=== PATIENT | male | born 1940 | race Two or more races ===

== ENCOUNTER → 2023-07-09 13:42 | Outpatient (REF) | payer OTHER, SELFPAY | LOC: HWRAD 13:42 | PROVIDERS: ATTENDING PHYSICIAN Internal Medicine Critical Care Medicine; FAMILY PHYSICIAN Hospitalist | DX: R91.1 Solitary pulmonary nodule (principal) | CPT/HCPCS: 71250 ==

== ENCOUNTER 2023-11-05 20:51 | Observation (INO) | payer OTHER, SELFPAY ==
[2023-11-05] VITALS (7 sets, daily range): BP systolic 136–157; BP diastolic 79–103; BMI 22.0; BMI 23.0
[2023-11-05 15:06] LABS: Glucose - Point of Care 103 mg/dl (70-99)
[2023-11-05 15:19] LABS: % Basophils 0.8 % (0-2); % Eosinophils 4.6 % (0-6); % Immature Granulocytes 0.2 % (0-0.5); % Lymphocytes 23.7 % (20.5-51.1); % Monocytes 12.7 % (1.7-9.3); Absolute Basophils 0.1 10^3/uL (0-0.2); Absolute Eosinophils 0.3 10^3/uL (0-0.7); Absolute Lymphocytes 1.5 10^3/uL (1.2-3.4); Absolute Monocytes 0.8 10^3/uL (0.1-0.6); Absolute Neutrophils 3.8 10^3/uL (1.4-6.5); Hematocrit 41.4 % (39.0-52.0); Hemoglobin 14.3 g/dL (13.0-18.0); Mean Corp Hgb Conc. 34.5 g/dL (33.0-37.0); Mean Corpuscular Hgb 32.1 pg (27.0-31.0); Mean Corpuscular Volume 92.8 fL (80.0-94.0); Mean Platelet Volume 9.3 fL (7.4-10.4); Nucleated Red Blood Cells % 0 % (-); Platelet Count 224 10^3/uL (130-400); Red Blood Cell Count 4.46 10^6/uL (4.70-6.10); Red Cell Dist. Width 12.2 % (11.5-14.5); White Blood Cell Count 6.5 10^3/uL (4.8-10.8)
[2023-11-05 15:43] LABS: ALT (SGPT) 17 U/L (0-50); AST (SGOT) 24 U/L (17-59); Albumin 4.3 g/dl (3.5-5.0); Alkaline Phosphatase 71 U/L (38-126); Blood Urea Nitrogen 27 mg/dl (9-20); Calcium 9.3 mg/dl (8.4-10.2); Carbon Dioxide 26 mmol/L (22-30); Chloride 104 mmol/L (98-107); Estimated Creatinine Clearance 42 ml/min; Glucose 107 mg/dl (70-99); Potassium 4.5 mmol/L (3.5-5.1); Sodium 138 mmol/L (135-145); Total Bilirubin 0.6 mg/dl (0.2-1.3); Total Protein 6.8 g/dl (6.3-8.2); eGFR 54.17
--- NOTE | 2023-11-05 19:17 | ED.CVA ---
History of Present Illness
General
Chief Complaint: CVA/TIA Symptoms
Source: patient
Exam Limitations: none
Time Seen by Provider: 11/05/23 17:24
Nursing documentation reviewed up to this point in time: agreed with
Onset of Stroke Symptoms
Onset of symptoms known: Yes
Date of onset of symptoms: 11/04/23
History of Present Illness
History of Present Illness:
83-year-old male presents emergency room complaining of intermittent slurred speech since yesterday. No aggravating relieving factors. He initially was having double vision 2 weeks ago.
Past History
Past History
ED Past Medical History: None
ED Past Surgical History: Cholecystectomy
Social History
Tobacco: Non-smoker
Alcohol: None
Drug: None
Review of Systems
Review of Systems
Allergies reviewed?: Yes
Constitutional: Reports no symptoms
EENT: Reports no symptoms
Respiratory: Reports no symptoms
Cardiac: Reports no symptoms
ABD/GI: Reports no symptoms
: Reports no symptoms
Musculoskeletal: Reports no symptoms
Skin: Reports no symptoms
Neurological: Reports other (Slurred speech, double vision)
Endocrine: Reports no symptoms
Hematologic/Lymphatic: Reports no symptoms
Psychiatric: Reports no symptoms
Phy Exam
Physical Exam
Physical Exam:
Physical Exam
General: afebrile
Neck: supple. no meningeal signs. normal posterior pharynx
Heart: s1/s2 regular rate and rhythm, no murmur. equal radial
pulses.
HEENT: Pupils equal round reactive to light, EOMI
Lungs: no acute respiratory distress. clear bilaterally
Abdomen: normal bowel sounds. not tender. no CVAT
Neuro: alert and oriented. no focal neurological deficits cranial nerves II through XII intact
Skin: no rash
Psychiatric: well kept. interactive and cooperative
Extremities: no edema. no calf tenderness. negative homans. good distal pulses
Scores
NIH Stroke Score
Level of Consciousness: 0 - Alert
LOC Questions: 0-Answers both correctly
LOC Commands: 0-Performs both correctly
Best Horizontal Gaze: 0-Normal
Visual Rios: 0=Normal, no visual loss
Facial Palsy: 0=Normal, symmetrical
Motor - Right Arm: 0=No drift 10 seconds
Motor - Left Arm: 0=No drift 10 seconds
Motor - Right Le-No drift 5 seconds
Motor - Left Le-No drift 5 seconds
Limb Ataxia: 0-Absent
Sensation: 0-Normal
Best Language: 0-No aphasia
Dysarthria: 0-Normal
Extinction and Inattention: 0-No abnormality
Total Score:: 0
Thrombolytic Contraindication
Inclusion and Exclusion criteria reviewed: Yes
Reasons for NON-Tx with Thrombolytics ABSOLUTE Exclusions: Greater than 4.5 hrs from onset of sxs
Course
Orders/Labs/Results
Orders:
Orders
11/05/23 14:37
Electrocardiogram (*1) Urgent
Reason for Study: TIA/Stroke
CT Head W/o Iv Contrast Urgent
Comment: for the last two wks
Reason For Exam: intermit slurred speech and diff eating
11/05/23 14:38
EKG- Treatment ONCE
11/05/23 15:08
Complete Blood Count/With Diff Urgent
Comprehensive Metabolic Panel Urgent
Abnormal Lab Results
11/05/23 11/05/23
15:04 15:08
RBC 4.46 L 10^6/uL
(4.70-6.10)
MCH 32.1 H pg
(27.0-31.0)
Absolute Monos (auto) 0.8 H 10^3/uL
(0.1-0.6)
Monocytes % 12.7 H %
(1.7-9.3)
BUN 27 H mg/dl
(9-20)
Glucose 107 H mg/dl
(70-99)
POC Glucose 103 H mg/dl
(70-99)
11/05/23 15:08
11/05/23 15:08
Vital Signs
Initial and Last Documented VS:
Initial Vital Signs
Temp Pulse Resp BP Pulse Ox
98.0 F 74 16 147/88 98
11/05/23 14:34 11/05/23 14:34 11/05/23 14:34 11/05/23 14:34 11/05/23 14:34
Last Documented Vital Signs
Temp Pulse Resp BP Pulse Ox
98.0 F 74 13 143/103 93
11/05/23 14:34 11/05/23 18:45 11/05/23 18:45 11/05/23 18:00 11/05/23 18:30
MDM/Problems Addressed
Differential Diagnosis Includes:
cva, tia
MDM/Problems Addressed:
83-year-old male with possible TIA vs MG. No indication for IAT or TNK. Discussed with neurology, who will evaluate, recommends TIA and MG workup
*Radiology
Radiology exam reviewed: radiology read reviewed (CT head shows no acute findings)
*Pulse Oximetry
Patient hypoxic: no
*EKG
Interpreted by ED Provider?: Yes
EKG Intrepretation Date: 11/05/23
EKG Intrepretation Time: 15:03
Interpretation: abnormal
Comparison EKG: no changes
Heart Rate: 75
Rate: normal
Rhythm: sinus
[place]: normal axis
Interval: normal interval
QRS Pattern: right bundle branch block
Ischemia: no ischemia
*Sizing Machine And Drier Operator Interpretation
Rate: normal
Interpretation: normal
Heart Rate: 75
Rhythm: sinus
*Critical Care Note
Total Time (30-74mins, 75-104mins- exclusive of procedures): Not Applicable
Data Reviewed
Prescriptions/Medications Considered But Not Given:
TNK not indicated
Patient Management
Social determinants of health affecting care: Living situation
Discussion with other providers: Hospitalist and Assistant Boiler Operator (Neurology)
Escalation/DeEscalation of care consider admission/obs:
Admit indicated
ED Attending Note
-
Portions of this chart may have been created with voice recognition software.� Occasional wrong word or��sound alike� substitutions may have occurred due to the inherent limitations of voice recognition software.
Discharge Plan
Departure
Patient Disposition: Admit
Date of Disposition: 11/05/23
Time of Disposition: 19:40
Admit to: Telemetry
Admit to doctor: Tito
Presentation/result/management discussed w/ accepting MD/DO: Hospitalist
Patient with high blood pressure during this ER visit?: Yes
Condition: Good
Discharge Problem:
Double vision, Dysphagia
Prescriptions:
No Action
Theragen Tablet
1 tab PO DAILY
imiquimod 5 % Cream In Packet
1 applic TOPICAL DAILYPRN PRN (Reason: top of face)
Referrals:
NONE,* [Family Provider] -
Interventions
Interventions:
*Risk Screen - Suicide Last Done: 11/05/23 15:21
*General Assessment Last Done: 11/05/23 15:21
*Neglect/Abuse Screening Last Done: 11/05/23 15:21
ED- Fall Risk Assessment Last Done: 11/05/23 15:21
ED- Pulmonary Assessment Last Done: 11/05/23 15:21
ED- Neurological Assessment Last Done: 11/05/23 15:21
ED- Cardiac Assessment Last Done: 11/05/23 15:21
ED Swallowing Screen Last Done: 11/05/23 15:21
Discharge Date and Time
Print Language: PASHTO
--- NOTE | 2023-11-05 20:10 | HPS.HSE ---
Family Physician
-
Family Physician: * NONE
Chief Complaint
-
double vision, swallowing difficulty
History of Present Illness
83-year-old male history of cataracts presenting with double vision since September. He states that he was on a trip and at that time he felt his eye muscles were weakening. Symptoms have not improved since then. Yesterday he felt that he was having
trouble swallowing and his tongue felt weird. He also had slurred speech since yesterday which has not completely improved. He denies any numbness or tingling anywhere else in the body or focal weakness or vertigo or headache.
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
He has had family history of strokes. Denies smoking or alcohol or drugs.
Medical History
Past Medical History
Past Medical History: Reports None
Past Surgical History: Reports Other (cataracts )
Social History
Tobacco: Non-smoker
Alcohol: None
Drug: None
Family History
Family History: Not pertinent
Allergies / Home Medications
Allergies reflects when Allergies were last updated in [facility].
Home Medications with original date entered in [facility]
Allergy/Medication List:
Allergies
Allergy/AdvReac Type Severity Reaction Status Date / Time
No Known Allergies Allergy Verified 11/05/23 14:37
Home Medications
imiquimod 5 % topical cream packet 1 applic topical DAILYPRN PRN top of face 11/05/23
therapeutic multivitamin 1 tab PO DAILY 11/05/23
Review of Systems
-
History Source: Patient
A 12 point ROS was completed and negative except as noted: Yes
Constitutional: Reports No Symptoms
EENT: Reports No Symptoms
Respiratory: Reports No Symptoms
Cardiac: Reports No Symptoms
Abdomen/GI: Reports No Symptoms
: Reports No Symptoms
Musculoskeletal: Reports No Symptoms
Skin: Reports No Symptoms
Neurological: Reports See HPI
Endocrine: Reports No Symptoms
Hematologic/Lymphatic: Reports No Symptoms
Psych: Reports No Symptoms
Physical Exam
Vital Signs
Vital Signs
Temp Pulse Resp BP Pulse Ox
98.0 F 74 13 143/103 93
11/05/23 14:34 11/05/23 18:45 11/05/23 18:45 11/05/23 18:00 11/05/23 18:30
Physical Exam
General: Well Developed, Well Nourished and No Apparent Distress
HEENT: NormoCephalic, Moist mucous membranes and Atraumatic
Respiratory: Clear
Cardiac: S1/S2 and Regular Rhythm; No Murmur or Rub
GI: Soft, Non Tender, Non Distended and Normal Bowel Sounds; No Organomegaly
Rectal: Deferred by Provider
Musculoskeletal: No Clubbing, No Cyanosis and No Edema
Skin: No Rash
Neuro: Nonfocal/grossly intact
Laboratory Results
-
11/05/23 15:08
11/05/23 15:08
Laboratory Results
Total Bilirubin 0.6 mg/dl (0.2-1.3) 11/05/23 15:08
AST 24 U/L (17-59) 11/05/23 15:08
ALT 17 U/L (0-50) 11/05/23 15:08
Alkaline Phosphatase 71 U/L (38-126) 11/05/23 15:08
Data Reviewed
-
Lab Data: Labs Reviewed by me
Old Records: Reviewed
Impression/Plan
-
IMPRESSION:
PLAN:
# CVA versus myasthenia gravis
-NIH 1 for mild speech slurring
-Check MRI/MRA neck and brain
-Check acetylcholine receptor antibody
-Neurology consulted
-Check speech and swallow
History of cataract surgery 2 years ago
Full code
DVT prophylaxis SCDs
Regular diet
--- NOTE | 2023-11-05 21:48 | CON.NEURO4 ---
Addendum entered and electronically signed by Vladimir Burroughs MD 11/06/23 12:23:
Pat has bilateral ptosis on cranial III nerve exam
Original Note:
Consultation - Neurology 4
-
CONSULTING PHYSICIAN: Vladimir Burroughs MD(Neurology)
REFERRING PHYSICIAN: Hospitalist/ ER
DICTATED BY: Vladimir Burroughs MD
DATE/TIME OF REQUEST: 11/05/2023
DATE/TIME OF CONSULTATION: 11/05/2023 1900
Reason for Consultation: Double vision
History of Present Illness:
This is a 83 year old right handed male who has presented to the hospital with chief complaint of double vision and slurred speech. He was in his [facility] till October 2023. At that time he had gone on long motorcycle trip across the state. On his
return he had blurred vision and double vision. The severity of the double vision would fluctuate from day-to-day. He later developed slurred speech. 2 nights prior to emergency room visit he was having dinner with his friends and could not chew.
His slurred speech was extremely severe. He called his friend who was a retired supplier quality manager, who advised him to go to the emergency room. He denies drooping of the eyelid
Or worsening of symptoms in the evening.
At the time of my evaluation patient had double vision looking straight ahead. And vision was intact on peripheral gaze.
Past Medical History: Warts
Surgical History: Cataract
Family History: [place]
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 Does not smoke or use alcohol
Allergies: NKA
Home Medications: Topical Imiquimod
Review of Symptoms:
Patient denies any fever, headache, chest pain, shortness of breath, GI or symptoms.
�Per the HPI.�All systems are reviewed negative except above.
Vital Signs:
The patient has a Temp36.6 C Pulse 69 Resp 18 BP 156/84 Pulse Ox 95
Physical Exam:
The patient is afebrile, heart sounds S1 and S2 are (regular / irregular), and chest is clear to auscultation bilaterally.
- If not clear, describe.
Neurologic Examination:
The patient is awake, alert and oriented x 3. He is able to follow commands and answer questions appropriately. Speech is fluent and there is no aphasia. Pat has dysarthria and difficulty chewing.
On cranial nerve assessment, pupils are 3 mm bilateral, round and reactive to light and accommodation. Visual mendoza are full. Extraocular movements are intact. Facial sensations are intact and bilaterally symmetrical, there is no facial asymmetry.
Hearing is intact bilaterally to normal conversation volume. Tongue palate and uvula are midline. Sternocleidomastoid strengths are full bilaterally.
Motor strengths are 5/5 bilateral upper and lower extremities on medical research [place] scale. There is no drift or involuntary movement noted. Deep tendon reflexes are 2+ bilateral upper and lower extremities and Babinski is absent bilaterally.
Sensations of pain, touch, temperature and vibration are intact and bilaterally symmetrical. There was no extinction noted on double simultaneous stimulation. Coordination is intact by finger to nose bilaterally.
Rombergs negative. Gait is WNL
Lab Results: 11/05/23 15:08
11/05/23 15:08
Neuro Imaging: CT head atrophy small vessel disease mild ventricular dilation
Impression:
Mr. RAYO MORALES is a 83 year old M who has presented to the hospital with bulbar symptoms of double vision, Dysarthria, difficulty chewing and dysphagia
Differentials for the patient's presentation include:
1. Myasthenia Gravis
2. Vertebrobasilar insufficiency
Recommendations:
1. Mestinon 30 mg TID before meals
2. Ecasa 81
3. Avoid statins for now
4. MRI of brainstem
5. Speech therapy
Discussed patient care with: Hospitalist
Allergies
-
Allergies
Allergy/AdvReac Type Severity Reaction Status Date / Time
No Known Allergies Allergy Verified 11/05/23 14:37
Vital Signs and Labs
-
Vital Signs and Labs:
Vital Signs
Temp Pulse Resp BP Pulse Ox
36.6 C 69 18 156/84 95
11/05/23 21:15 11/05/23 21:15 11/05/23 21:15 11/05/23 21:15 11/05/23 21:15
Lab Results
0
Sodium 138 mmol/L (135-145) 11/05/23 15:08
Potassium 4.5 mmol/L (3.5-5.1) 11/05/23 15:08
BUN 27 mg/dl (9-20) H 11/05/23 15:08
Glucose 107 mg/dl (70-99) H 11/05/23 15:08
Calcium 9.3 mg/dl (8.4-10.2) 11/05/23 15:08
Medications
-
Active Medications
Generic Name Dose Route Start Last Admin
Trade Name Freq PRN Reason Stop Dose Admin
Sodium Chloride 0 flush 11/05/23 22:00
Sodium Chloride 0.9% (Flush) Syringe IV 12/03/23 21:59
PER PROTOCOL CHECO
Home Medications
�Medication �Instructions �Recorded
imiquimod 5 % topical cream packet 1 applic topical DAILYPRN PRN top 11/05/23
of face
therapeutic multivitamin 1 tab PO DAILY 11/05/23
[2023-11-06 03:10] VITALS: BP 136/84
[2023-11-06 07:00] VITALS: BP 156/94
[2023-11-06 07:19] LABS: Hematocrit 41.2 % (39.0-52.0); Hemoglobin 14.5 g/dL (13.0-18.0); Mean Corp Hgb Conc. 35.2 g/dL (33.0-37.0); Mean Corpuscular Hgb 32.2 pg (27.0-31.0); Mean Corpuscular Volume 91.6 fL (80.0-94.0); Mean Platelet Volume 9.1 fL (7.4-10.4); Platelet Count 210 10^3/uL (130-400); Red Cell Dist. Width 12.2 % (11.5-14.5); White Blood Cell Count 7.2 10^3/uL (4.8-10.8)
[2023-11-06 08:18] LABS: Blood Urea Nitrogen 23 mg/dl (9-20); Calcium 8.9 mg/dl (8.4-10.2); Carbon Dioxide 28 mmol/L (22-30); Chloride 104 mmol/L (98-107); Estimated Creatinine Clearance 47 ml/min; Glucose 95 mg/dl (70-99); HDL Cholesterol 59 mg/dl; LDL Cholesterol, Calculated 136 mg/dl; Potassium 4.6 mmol/L (3.5-5.1); Sodium 138 mmol/L (135-145); Total Cholesterol 213 mg/dl (50-199); Triglyceride 91 mg/dl (10-149); Very Low Density Lipoprotein 18 mg/dl (0-30); eGFR 59.63
--- NOTE | 2023-11-06 10:53 | W.PN.HOSP.TC ---
Today's Communication/Plan
-
Follow-up MRI/MRI
Follow-up myasthenia gravis antibodies
Neurology eval
Assessment / Plan
Assessment / Plan
#Diplopia/visual disturbance -- differentials include CVA/TIA versus myasthenia gravis; lower suspicion for Eaton-Lambert syndrome
#Slurred speech
-No obvious focal deficits on arrival, NIHSS initially was 1 due to mild speech slurring
-Symptoms have been intermittent, associated with visual disturbance and slurred speech at times
-Per history today there is not any obvious fatigable pattern to his symptoms, denies being worse at night
-MRI/MRA of the head and neck were ordered with results pending to assess for etiologies of CVA
-Myasthenia gravis antibody panel ordered, results pending
-Neurology following
Plan
-Follow-up the above studies
-Avoid IV magnesium until myasthenia gravis ruled out
-Continue with frequent neurochecks, monitor for respiratory distress
-Continue to follow NIHSS
#History of cataract surgery 2 years ago
-Following his procedure his vision was improved, do not expect that this is related to his admission here
Full code
DVT prophylaxis: SCDs
Diet: House
Anticipated Discharge: 24 - 48 hours
Subjective/Interval History
-
Date of Service: November 06, 2023
No acute events. States that he feels well today though symptoms are intermittent and come and go. Additionally, he does not describe any temporal relation or obvious fatigability to his symptoms.
He denies any diplopia or blurry vision at time of my eval, he denies any other symptoms either. States that he feels well and like himself.
Objective Data
-
Labs:
Laboratory Results
11/06/23
06:46
WBC 7.2
Hgb 14.5
Hct 41.2
Plt Count 210
Sodium 138
Potassium 4.6
Chloride 104
Carbon Dioxide 28
BUN 23 H
Creatinine 1.2
Glucose 95
Calcium 8.9
Vital Signs:
Vital Signs
Temp Pulse Resp BP Pulse Ox
97.4 F 81 16 156/94 94
11/06/23 07:00 11/06/23 07:00 11/06/23 07:00 11/06/23 07:00 11/06/23 07:00
I&O
11/05/23 11/06/23 11/07/23
06:59 06:59 06:59
Intake Total 360 / 360
Balance 360 / 360
Review of Systems
-
History Source: Patient
All other systems: Reviewed and negative
Constitutional: Reports No Symptoms
EENT: Reports No Symptoms Reported
Respiratory: Reports No Symptoms
Cardiac: Reports No Symptoms
Abdomen/GI: Reports No Symptoms
Genitourinary: Reports No Symptoms
Musculoskeletal: Reports No Symptoms
Skin: Reports No Symptoms
Neuro: Reports No Symptoms
Endocrine: Reports No Symptoms
Hematologic / Lymphatic: Reports No Symptoms
Physical Exam
-
General: No Apparent Distress, Comfortable and Other (Thin elderly male)
HEENT: Normocephalic, Atraumatic, Moist Mucous Membranes and Anicteric
Respiratory: Clear to Auscultation and Non Labored Respirations; Negative Wheezes, Rales or Rhonchi
Cardiac: Regular Rhythm and S1/S2; Negative Murmur, Rub or Gallop
GI: Soft, Nontender, Nondistended and Normal Bowel Sounds
Musculoskeletal: No Clubbing, No Cyanosis and No Edema
Skin: Warm and Dry; Negative Rash or Jaundice
Neuro: AO x 3 and Other (5/5 MMS to bilateral upper and lower extremities, proximally and distally. No gross sensory deficits. Cranial nerves III through X without obvious focal deficit. Normal muscle tone, deep tendon reflexes appear normal.
Did not notice fatigability to test or other examinations.); Negative Tremors
Data Reviewed
-
Labs: Labs Reviewed by me
--- NOTE | 2023-11-06 12:37 | W.PN.NEURO.1 ---
Documented by User: Mickie Gonzalez NP 11/06/23 13:47
Today's Communication / Plan
-
.
Neuro Assessment/Plan
Assessment
This is an 83-year-old male who presented to on 11/05/23 with report of intermittent diplopia, right eyelid drooping, slurred speech, and chewing/swallowing difficulty starting on 10/22/23. Patient also notes that two years ago he started having
diplopia and was evaluated by his eye doctor at that point. He got prism glasses but reports it was rarely an issue so he hasn't used them. He denies any shortness of breath and weakness.
-CT Chest 07/09/23: Few tiny bilateral calcified pulmonary nodules, stable, compatible with old granulomatous disease. Few bilateral tiny noncalcified pulmonary nodules stable except for a NEW 5 MM RIGHT LOWER LOBE PULMONARY NODULE. No evidence of
thymoma.
-CT Head 11/05/23: No acute intracranial abnormality noted. Minimal periventricular small vessel ischemic disease. Mild atrophy.
-MRI brain 11/06/23: No acute intracranial abnormality noted. Sequelae of mild small vessel ischemic disease.
-MRI head/neck 11/06/23: No significant arterial stenosis. Right dominant vertebral artery with decreased caliber of the V4 segment of the left vertebral artery, normal variant.
I. Myasthenia gravis likely producing bilateral ptosis, diplopia, swallowing difficulty, and dysarthria.
II. MRI brain negative for stroke.
III. Vertebrobasilar insufficiency less likely.
Plan
-Myasthenia antibodies pending.
-Initiate Mestinon 30mg TID, monitor for excessive diarrhea. If tolerating after one week, can increase dose to 60mg TID if needed.
-CT chest 07/2023 negative for thymoma.
-Okay to continue aspirin 81mg daily, would avoid statin initiation at this point.
-Checking blood work for metabolic abnormalities.
-ST evaluation.
-Okay to discontinue NIHSS/neuro checks.
-Patient provided with a stroke education packet.
-DVT prophylaxis.
-Patient will need follow-up as an outpatient with Neurology in the next 4 weeks, may see the FAMILY LAW SPECIALIST or one of the physicians.
Subjective/Objective
Subjective Data
Date of Service: November 06, 2023
No acute events overnight. Patient report ongoing intermittent vertically stacked diplopia, mostly with upgaze and looking left. The diplopia resolves with closing one eye. He also notes bilateral eyelid heaviness, ongoing chewing difficulty, and
slightly slurred speech at times. He denies any headache, dizziness, sensation of food getting caught in his throat, numbness, weakness, chest pain, palpitations, and shortness of breath.
Objective Data
Vital Signs
Temp Pulse Resp BP Pulse Ox
97.4 F 81 16 156/94 94
11/06/23 07:00 11/06/23 07:00 11/06/23 07:00 11/06/23 07:00 11/06/23 07:00
Lab Results
11/06/23 06:46
11/06/23 06:46
Sodium 138 mmol/L (135-145) 11/06/23 06:46
Potassium 4.6 mmol/L (3.5-5.1) 11/06/23 06:46
BUN 23 mg/dl (9-20) H 11/06/23 06:46
Glucose 95 mg/dl (70-99) 11/06/23 06:46
Calcium 8.9 mg/dl (8.4-10.2) 11/06/23 06:46
LDL Cholesterol, Calc 136 mg/dl 11/06/23 06:46
Patient Allergies
No Known Allergies Allergy (Verified 11/05/23 14:37)
Review of Systems
-
History Source: Patient
EENT: Blurry Vision (and diplopia) and Swallowing Difficulty; Negative Decreased Vision
Respiratory: Negative Cough or Trouble Breathing
Cardiac: Negative Chest Pain or Palpitations
Abdomen/GI: Negative Nausea or Diarrhea
Genitourinary: Negative Difficulty Voiding
Neuro: Speech Problem; Negative Dizzy, Headache, Weakness, Numbness, Ataxia or Tremors
Physical Exam
-
General: Well Developed, Well Nourished and No Apparent Distress
Eyes: PERRLA; Negative No Ptosis (bilateral ptosis)
HEENT: Normocephalic and Atraumatic
Neck: No Bruits Bilaterally and Full Range of Motion
Respiratory: No Dyspnea
GI: Non-distended
Extremities: No Clubbing, No Cyanosis and No Edema
Psych: Unremarkable
Extended Neurological Exam
Mood & Affect: Mood Unremarkable and Affect Unremarkable
Attention Span & Concentration: Awake, Alert and Interactive
Memory: Unremarkable (AAOx3) and Able to Recall
Tremor: Hand Tremor Absent and Head Tremor Absent
Involuntary Movement: None
Speech: Dysarthric (slightly hypophonic)
Cranial Nerve II: Left Eye: Pupillary Reactivity Unremarkable, Pupillary Size Unremarkable and Visual Rios Intact
Cranial Nerve II: Right Eye: Pupillary Reactivity Unremarkable, Pupillary Size Unremarkable and Visual Rios Intact
Cranial Nerves III, IV, : Extraocular Movement: Extraocular Movement Full in all Directions (cannot maintain lateral gaze in either direction for an extended period) and Other (diplopia with left gaze and upgaze)
Cranial Nerve V: Facial Sensation: Intact to Light Touch
Cranial Nerve VII: Facial Symmetry: Normal Facial Symmetry
Cranial Nerve VIII: Hearing: Unremarkable Hearing to Normal Conversational Volume
Cranial Nerves IX, X: Palate Movement: Palate Elevation Symmetric
Cranial Nerve XI: Shoulder Shrug: Unremarkable
Cranial Nerve XII: Tongue Protusion: Midline
Muscle Strength, Overall: Full Throughout
Muscle Bulk & Tone: Bulk Unremarkable and Tone Unremarkable
Pronator Drift: No Drift in Upper Extremities and No Drift in Lower Extremities
Deep Tendon Reflexes: Unremarkable Throughout
Cold Sensation: Reduced Moderately Distally
Vibration Sensation: Unremarkable
Touch Sensation: Double Simultaneous Stimulation Unremarkable
Coordination: [id number]-[id number] Testing Unremarkable
Babinski Sign: Absent Bilaterally
Gait & Station: Up from Seated Without Problem
Data Reviewed
-
CT Head: Report Reviewed and Image Reviewed
MRI Head: Report Reviewed and Image Reviewed
MRA Head: Report Reviewed and Image Reviewed
MRA Neck: Report Reviewed and Image Reviewed
Labs: Report Reviewed
Lipid Profile: Report Reviewed
HgbA1C: Report Reviewed
Reviewed with: Physician and Patient
Medications
-
Active Medications
Generic Name Dose Route Start Last Admin
Trade Name Freq PRN Reason Stop Dose Admin
Aspirin 81 mg 11/07/23 08:00
Aspirin 81 Mg (Enteric Coated) Tablet PO 12/05/23 07:59
DAILY CHECO
Pyridostigmine [place] 30 mg 11/06/23 12:00 11/06/23 12:49
Pyridostigmine 60 Mg Tablet PO 12/04/23 11:59 30 mg
TID CHECO Administration
Sodium Chloride 0 flush 11/05/23 22:00
Sodium Chloride 0.9% (Flush) Syringe IV 12/03/23 21:59
PER PROTOCOL CHECO
Home Medications
�Medication �Instructions �Recorded
imiquimod 5 % topical cream packet 1 applic topical DAILYPRN PRN top 11/05/23
of face
therapeutic multivitamin 1 tab PO DAILY 11/05/23

Documented by User: Vladimir Burroughs MD 11/06/23 21:58
Today's Communication / Plan
-
83 yr. old male with h/o blurred vision over the last 1 year currently admitted with double vision, dysarthria and difficulty chewing with ptosis who had no acute ischemia on MRI studies. Acetylcholine receptor and MUSK antibody studies pending. His
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
PLAN: Mestinon 30mg TID before meals to titrate as tolerated to Mestinon 60mg TID
Aspirin 81 mg daily
Avoid Statin
[2023-11-06] MEDS: MESTINON 30 MG PO (12:49)
--- NOTE | 2023-11-06 13:09 | PTOTSP ---
Dysphagia Evaluation
Oral/pharyngeal stages of swallowing WFL at time of evaluation. Patient reported episodes of oral dysphagia (i.e., difficulty chewing steak Sunday, difficulty forming labial seal to drink from a bottle Sunday) and is being evaluated for CVA vs
Myasthenia Gravis.
Recommend:
1. Regular (pick soft/moist foods), Thin Liquids
2. Medications - as best tolerated
3. Strategies: upright to 90 degrees, pick soft/moist foods, cut foods into small bite sized pieces, chew foods well, pick easier to chew/swallow foods for dinner, monitor for fatigue/sensation of stasis
4. Dysphagia therapy at the acute care level for continued assessment of swallowing and instruction in compensations.
[2023-11-06 15:31] LABS: TSH Reflex To Free T4 2.14 uIU/ml (0.47-4.68)
[2023-11-06 15:35] LABS: Ferritin 82.8 ng/ml (17.9-464.0)
--- NOTE | 2023-11-06 15:44 | CM ---
CM met with pt at bedside
Pt lives with his . Splits [place] between [place]. Currently residing in a 1 story home in [place]. 1 step to enter
Independent, drives, very active
DME - none
SNF/HH - no hx
Has ride at d/c
PCP - Dr Deras
Pharm - [facility]
Discussed [facility]
Plan - anticipate home no needs
[2023-11-06 16:07] LABS: Folate 14.2 ng/ml (2.76-20); Vitamin B12 764 pg/ml (239-931)
--- NOTE | 2023-11-06 16:35 | W.DCSUMMARY ---
Discharge Summary
Discharge Data
Date of Admission: 11/05/23
Date of Discharge: 11/06/23
-
Pending Results: Yes
Additional Pending Results:
MG antibody testing
Hospital Course
Presented to the hospital with diplopia and slurred speech intermittently over multiple days. Symtpoms would resolve and recur spontaneously without trigger. MRI and MRA did not show evidence of CVA or cerebrovascular disease. Neurology evaluated
and diagnosed MG clinically. MG antibody test sent, results pending. Started on Mestinon 30 mg TID with directive to increase to 60 mg TID in one week if no ADRs. Will refer to neurology for out-patient follow up.
Advised to return to ED if he developed worsening weakness or new respiratory symptoms.
Discharge Plan
-
Patient Disposition: Home (Routine Discharge)
Discharge Diagnosis/Procedures: Myasthenia Gravis - pending Ab results
Diplopia
Slurred speech
Condition: Good
Diet: Other diet
Additional Diets: Avoid magnesium supplementaion
Activity: As tolerated
Driving Restrictions: As prior to admission
Bathing Restrictions: None
Blood Work: Myasthenia Gravis antibody, results pending
Activity Restrictions/Additional Instructions:
If worsening symptoms or develop new shortness of breath or trouble breathing call 911 or have someone bring you to nearest Emergency Department
Referrals:
Vladimir Burroughs MD [Active] - in less than 1 week (call office for follow up appointment)
NONE,* [Family Provider] -
Additional Discharge Medication Instructions: Start [place] 30 mg three times daily (AM, noon, PM)
On 11/14/2023, if no severe diarrhea or other side effect, increase to 60 mg three times daily
Prescriptions:
New
aspirin 81 mg Tablet,Delayed Release (Dr/Ec)
81 mg PO DAILY 30 Days Qty: 30 0RF
pyridostigmine bromide 60 mg Tablet
30 mg PO TID 30 Days Qty: 60 0RF
Rx Instructions:
Start with 30 mg three times daily
Increase to 60 mg three times daily on 11/14/2023
Continued
imiquimod 5 % Cream In Packet
1 applic TOPICAL DAILYPRN PRN (Reason: top of face)
Discontinued
Theragen Tablet
1 tab PO DAILY
Discharge Orders:
Discharge Patient (As Directed); Ordered 11/06/23
Ordered By: Mil Harper
Discharge Date and Time
Print Language: NEPALESE
[2023-11-07 09:08] LABS: Glycohemoglobin (HgbA1c) 5.6 % (4.0-5.6)
[2023-11-09 17:43] LABS: Acetylcholine Receptor Bind Ab 29.4 nmol/L (0.0-0.4)
== END 2023-11-06 16:55 | disposition home or self-care (01) ==
LOC: 3 WEST ACU 20:51
PROVIDERS: Emergency Medicine; ADMITTING PHYSICIAN Hospitalist; ATTENDING PHYSICIAN Internal Medicine; CONSULT PHYSICIAN Psychiatry & Neurology Neurology; EMERGENCY PHYSICIAN Emergency Medicine
DX: G70.00 Myasthenia gravis without (acute) exacerbation (principal); R47.81 Slurred speech; H53.2 Diplopia; R13.10 Dysphagia, unspecified; H26.9 Unspecified cataract; I45.10 Unspecified right bundle-branch block; Z90.49 Acquired absence of other specified parts of digestive tract; Z82.3 Family history of stroke
CPT/HCPCS: 70450; 70544; 70548; 70553; 80048; 80053; 80061; 82607; 82728; 82746; 82962; 83036; 84443; 85025; 85027; 86041; 92610; 93005; 99285; A9585; G0378